=== PATIENT | male | born 1990 | race Caucasian/White ===

== ENCOUNTER 2024-06-23 11:02 | Outpatient (AMB) | payer BC, SELFPAY ==
--- NOTE | 2024-06-23 11:11 | AM.OFFWIN_ITS ---
Intake Vital Signs 06/23/24 11:12 Height 5 ft 9 in Weight 234 lb BMI 34.6 BP 110/78 Blood Pressure Location Rt brachial Position Sitting Pulse 80 Pulse Source Pulse Oximeter Pulse Oximetry (%) 98 Oxygen Delivery Method Room Air Intake Visit Reasons: EP cough/asthma? Intake Note: Patient here for cough/asthma which has been going on for about 1 year. Patient Tobacco Use Status: Never used Tobacco Allergies No Known Allergies Allergy (Verified 06/23/24 11:13) Do you need a note to return to daycare/school/sports/work: No HPI HPI Comments History of Present Illness Details Patient is a 33-year-old male complaining cough for the last year. He states that prior to him living in this area, his former PCP discussed it with him and sent him an inhaler but never did any pulmonary function tests. He states he use the inhaler here and there but did not really think it helped much. He does not have an inhaler anymore. He tells me the cough is worse when he exercises and when he is sleeping. Does not think it is worse after he eats a meal but does state that he thinks it is very random. He denies any other upper respiratory symptoms or fevers. He does not have a PCP currently. [facility] Social History Patient Tobacco Use Status: Never used Tobacco Review of Systems Const All systems reviewed & are unremarkable except as noted in HPI and below Physical Exam Vital Signs: Last Vital Signs Pulse 80 06/23/24 11:12 BP 110/78 06/23/24 11:12 Pulse Ox 98 06/23/24 11:12 Oxygen Delivery Method Room Air 06/23/24 11:12 BMI result Body Mass Index 34.6 Const General: cooperative, healthy appearing, comfortable and no acute distress Orientation/consciousness: patient oriented x3 Limitations: no limitations HEENT Head: Yes normal to inspection Ears: hearing grossly normal bilaterally and external ears normal General nose exam: Normal external nose present and No nasal discharge present Face and sinus: Yes normal facial exam Eyes General: appearance normal, both eyes and all related structures Neck Neck: Yes normal visual inspection Resp Effort & Inspection: normal respiratory effort, able to speak in complete sentences, no respiratory distress, not tachypneic, no tripod positioning and no use of accessory muscles Skin General skin exam: no rashes or lesions noted Neuro General: patient oriented x3 Extrem General: Yes normal to inspection and Yes no clubbing, cyanosis or edema Assessment & Plan Assessment & Plan (1) Cough: Code(s): R05.9 - Cough, unspecified Qualifiers: Cough type: chronic Qualified Code(s): R05.3 - Chronic cough Plan: Explained to patient this could be either an exercise-induced asthma or GERD. Recommended he try an inhaler again, explained to him how to use it 20-30 minutes prior to him exercising, sent inhaler to pharmacy. Asked him to see how this goes and then if he still has the cough, he should try omeprazole twice a day for a week and then go down to once a day dosing and see if that coils his cough. Explained that he could have both exercise-induced asthma and GERD but he would have to try each treatment and see which one helps. Encouraged him to find a new primary care doctor and make an appointment so he could have pulmonary function tests Plan see above Medications: New albuterol sulfate 90 mcg/actuation (Ventolin HFA) 2 puffs inhalation Q4-6H PRN 8.5 grams 0RF shortness of breath or wheezing Coding Level of Care Code New Pt Level 3 (61194) Diagnoses Chronic cough R05.3 Cough type: chronic
[2024-06-23 11:12] VITALS: BP 110/78; PULSE 80; O2SAT 98; BMI 34.6
== END 2024-06-23 11:58 | disposition home or self-care (01) ==
PROVIDERS: Visit Provider Physician Assistant
DX: R05.3 Chronic cough (principal)

== ENCOUNTER → 2024-06-23 11:02 | Outpatient (BNVA) | payer BC, SELFPAY | PROVIDERS: Visit Provider Physician Assistant ==

== ENCOUNTER 2024-07-09 13:12 | Outpatient (AMB) | payer BC, SELFPAY ==
[2024-07-09 13:15] VITALS: BP 134/72; PULSE 87; O2SAT 97; BMI 34.4
--- NOTE | 2024-07-09 13:15 | MHC.PC.OV ---
Vital Signs 07/09/24 13:15 Height 5 ft 9 in Weight 233 lb 0.6 oz BMI 34.4 BP 134/72 Blood Pressure Location Lt brachial Position Sitting Pulse 87 Pulse Source Pulse Oximeter Pulse Oximetry (%) 97 Oxygen Delivery Method Room Air Intake Visit Reasons: establish care Allergies No Known Allergies Allergy (Verified 07/09/24 13:32) Medication List - Last Reconciled 07/09/24 by Sary Em PA-C albuterol sulfate 90 mcg/actuation (Ventolin HFA) 2 puffs inhalation Q4-6H PRN Tobacco use date assessed: 07/09/24 Dental Screening Dental Screen Date: 07/09/24 Did you have a dental visit in the last 12 months?: No Did you have a dental problem in the last 6 months where you did not have access to dental care?: No HPI establish care HPI Details 33-year-old male coming to the office for the 1st time. Patient was last seen by [facility] 1-2 years ago. He was seen in urgent care for intermittent cough a couple of weeks ago and given prednisone and albuterol. Since his urgent care visit his cough has significantly improved. He does still have to clear his throat occasionally but the cough is pretty much dissipated at this time. He was bit by dog a few years ago and had tetanus shot updated. [facility] Family History (Updated 07/09/24 @ 13:36 by Sary Em PA-C) Maternal Grandmother Breast cancer Social History Patient Tobacco Use Status: Never used Tobacco Cognitive needs: No Hearing needs: No Vision needs: No Questionnaire PHQ-9 Over the last 2 weeks, how often have you been bothered by any of the following problems? 1. Little interest or pleasure in doing things: not at all 2. Feeling down, depressed, or hopeless: not at all 3. Trouble falling or staying asleep, or sleeping too much: not at all 4. Feeling tired or having little energy: several days 5. Poor appetite or overeating: not at all 6. Feeling bad about yourself - or that you are a failure or have let yourself or your family down: not at all 7. Trouble concentrating on things, such as reading the newspaper or watching television: not at all 8. Moving or speaking so slowly that other people could have noticed. Or the opposite - being so fidgety or restless that you have been moving around a lot more than usual: not at all 9. Thoughts that you would be better off or of hurting yourself in some way: not at all Total score: 1 Depression Screening Interpretation: Negative Depression Screening Done: Yes 59908 - PHQ-9 Billing: Yes Source: Developed by Drs. Casimiro Holbrook, Teresa Matta, Juan Lyn and colleagues, with an educational jose from [employer]. Thrive Questionnaire Date Thrive assessed: 07/09/24 I am a: Patient What is your living situation today?: I have a steady place to live Within the past 12 months, did the food you bought not last and you didn't have the money to get more?: Often true Within the past 12 months, did you worry whether your food would run out before you got money to buy more?: Never true Do you have trouble paying for medicines?: No Do you have trouble getting transportation to medical appointments?: No Do you have trouble paying your heating and electricity bill?: No Do you have trouble taking care of your child, family member or friend?: No Do you have trouble with day-to-day activities such as bathing, preparing meals, shopping, managing finances, etc.?: No Are you currently unemployed and looking for a job?: No Are you interested in more education?: No Please select the resources that you would like help with: None Currently or been in a relationship where the following occur: No concerns reported THRIVE Score: 1 AUDIT C Alcohol Use Questionnaire (AUDIT-C) 1. How often do you have a drink containing alcohol?: Monthly or less 2. How many drinks containing alcohol do you have on a typical day when you are drinking?: 1 or 2 3. How often do you have six or more drinks on one occasion?: Less than monthly Total Score: 2 ARYAN-7 AMB Questionnaire ARYAN-7 Date ARYAN - 7 assessed: 07/09/24 Feeling nervous, anxious, or on edge: 0 = Not at all Not being able to stop or control worryin = Not at all Worrying too much about different things: 0 = Not at all Trouble relaxin = Not at all Being so restless that it is hard to sit still: 0 = Not at all Becoming easily annoyed or irritable: 0 = Not at all Feeling afraid as if something awful might happen: 0 = Not at all Total ARYAN-7 score (0-4 normal; 5-9 mild; 10-14 moderate; 15-21 severe): 0 Source: Developed by Drs. Casimiro Holbrook, Teresa Matta, Juan Lyn and colleagues, with an educational jose from [employer]. ARYAN-7 Assessment Billing ARYAN-7 Assessment Tool: ARYAN-7 Assessment 18288 Review of Systems Const Denies body aches, Denies chills, Denies fatigue, Denies fever(s), Denies headache(s) and Denies poor appetite Eyes Reports no additional complaints ENT Denies dysphagia, Denies dizziness, Denies headache(s) and Denies odynophagia Card Denies chest pain, Denies syncope, Denies edema, Denies irregular heart rhythm, Denies lightheadedness and Denies dyspnea Resp Reports cough and Denies dyspnea GI Denies abdominal pain, Denies constipation, Denies dysphagia, Denies diarrhea, Denies nausea, Denies odynophagia and Denies vomiting Reports no additional complaints Musc Reports no additional complaints and Denies abnormal gait Skin/Breast Reports system reviewed and no additional complaints, except as documented Neuro Denies abnormal gait, Denies dizziness, Denies syncope and Denies headache(s) Psych Reports no additional complaints Endo Denies fatigue Physical exam (Primary Care) Vital Signs: Last Vital Signs Pulse 87 07/09/24 13:15 BP 134/72 07/09/24 13:15 Pulse Ox 97 07/09/24 13:15 Oxygen Delivery Method Room Air 07/09/24 13:15 BMI result Body Mass Index 34.4 Tobacco/Smoking Status: Tobacco use Status Tobacco use date assessed 07/09/24 07/09/24 13:16 Patient Tobacco Use Status Never used Tobacco 07/09/24 13:16 PHQ-9: PHQ-9 Score PHQ-9: Total score 1 07/09/24 13:16 Depression Screening Interpretation: Negative Thrive Assessment: Date of Thrive Assessment Date Thrive assessed 07/09/24 07/09/24 13:16 Currently or been in a relationship where the following occur: No concerns reported Const General: cooperative, healthy appearing, comfortable and no acute distress Orientation/consciousness: patient oriented x3 HENMT Head: Yes normocephalic Ears: hearing grossly normal bilaterally General nose exam: Normal external nose present Face and sinus: Yes normal facial exam and Yes sinuses nontender Mouth: Normal oral and palatal mucosa present and tongue normal Throat: Yes posterior oropharynx normal Eyes General: appearance normal, both eyes and all related structures Conjunctivae: conjunctivae normal Pupils: Equal, round and reactive pupils present EOM: EOMs intact bilaterally and No Nystagmus present Neck Neck: Yes full ROM and Yes no lymphadenopathy Chest Chest palpation & inspection: normal inspection of the chest Resp Effort & Inspection: normal respiratory effort Auscultation: clear to auscultation bilaterally, no crackles, no rales, no rhonchi and no wheezes Cardio Rate: regular rate Rhythm: regular rhythm Peripheral pulses: radial pulses present and dorsalis pedis present GI Inspection: Yes normal to inspection and No Abdominal wall edema Palpation (GI): Soft to palpation, not firm and nontender Auscultation: normal bowel sounds Rectal Exam - Male: Yes deferred General: Yes no CVA tenderness Back/Spine/Pelvis Back: no CVA tenderness Skin General skin exam: no rashes or lesions noted Neuro General: patient oriented x3 Cranial nerves: Yes Equal, round and reactive pupils present, Yes Midline tongue present, Yes Ability to bilaterally elevate shoulders present and No Nystagmus present Gait exam (Neuro): Normal gait present Extrem General: Yes normal to inspection, Yes full ROM and No edema Psych Speech and movement: Normal speech and movement present Affect: normal affect Attitude: cooperative Insight: Good insight present (Psych) Judgement: Good judgement present (Psych) Coding Level of Care Code New Pt Prev Care 18-39yr(62612 Diagnoses Chronic cough R05.3 Cough type: chronic Annual physical exam Z00.00 Additional Codes ARYAN-7 Assessment Billing - ARYAN-7 Assessment Tool: ARYAN-7 Assessment 38877 ([id number]) Assessment & Plan Assessment & Plan (1) Cough: Code(s): R05.9 - Cough, unspecified Category: Medical Qualifiers: Cough type: chronic Qualified Code(s): R05.3 - Chronic cough Plan: Cough has largely improved since urgent care visit and lung sounds are clear on exam. Advised patient to undergo pulmonary function testing as he does still occasionally have it cough while at work. 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 (2) Annual physical exam: Code(s): Z00.00 - Encounter for general adult medical examination without abnormal findings Category: Medical Plan: Patient is up-to-date on all recommended routine screenings and vaccinations for his age. Ordered for updated blood work and advised patient to follow up in 1 year or sooner pending blood work results or if new problems arise. Plan This note was constructed using voice recognition software. While every effort has been made to ensure accuracy and resource recovery engineer, still areas may have been included sometimes these areas may affect the content or meeting of the given symptoms. Total time spent caring for the patient today was 30 minutes. This includes time spent before the visit reviewing the chart, time spent during the visit, and time spent after the visit and documentation. Orders: Orders PFT pulmonary function test Today R05.3 - Chronic cough Comprehensive Met. Panel Today Z00.00 - Encounter for general adult medical examination without abnormal findings Complete Blood Count Auto Diff Today Z00.00 - Encounter for general adult medical examination without abnormal findings Free T4 (Free Thyroxine) Today Z00.00 - Encounter for general adult medical examination without abnormal findings Lipid Panel Today Z00.00 - Encounter for general adult medical examination without abnormal findings TSH reflex Free T4 Today Z00.00 - Encounter for general adult medical examination without abnormal findings Vitamin B12 and Folate Today Z00.00 - Encounter for general adult medical examination without abnormal findings Vitamin D 25-OH (D2 and D3) Today Z00.00 - Encounter for general adult medical examination without abnormal findings
== END 2024-07-09 13:45 | disposition home or self-care (01) ==
LOC: HO.HMCH 13:13
DX: R05.3 Chronic cough (principal); Z00.00 Encounter for general adult medical examination without abnormal findings

== ENCOUNTER → 2024-07-09 13:12 | Outpatient (BNVA) | payer BC, SELFPAY | DX: R05.3 Chronic cough (principal) | CPT/HCPCS: 96127 ==

== ENCOUNTER 2024-08-20 12:36 | Outpatient (REF) | payer BC, SELFPAY ==
[2024-08-20 10:20] VITALS: PULSE 65; O2SAT 95
--- NOTE | 2024-08-20 12:41 | PFT_ITS ---
Indication: Cough Spirometry [FEV1 to FVC 81%; FEV1 4.28 L; FVC 5.3 L. No significant response to bronchodilators noted. Maximum voluntary ventilation 95% predicted] Lung Volumes [Total lung capacity 95% predicted; expiratory reserve volume 19% predicted. ] Diffusion Capacity [DLCO 105% predicted] Comparisons [None] Interpretation [No obstructive nor restrictive ventilatory defects identified. No significant response to bronchodilators noted. Normal maximum voluntary ventilation. Normal lung volumes except for decrease in the expiratory reserve volume secondary to an elevated BMI. Diffusing capacity is within normal limits. If asthma is in the differential methacholine challenge may be helpful seen for hyperreactive airways. Otherwise clinical correlation warranted.] MTDD
== END 2024-08-20 12:37 | disposition home or self-care (01) ==
LOC: HO.RESP 12:36
DX: R05.3 Chronic cough (principal)
CPT/HCPCS: 94010; 94640; 94727; 94729

== ENCOUNTER → 2024-08-20 12:41 | Outpatient (BNV) | payer BC, SELFPAY | PROVIDERS: Visit Provider Hospitalist | DX: R05.3 Chronic cough (principal) | CPT/HCPCS: 94060; 94727; 94729 ==